=== PATIENT | male | born 1985 | race Caucasian/White ===

== ENCOUNTER 2022-11-06 16:47 | Emergency (ER) | payer BC, OTHER ==
[~2022-11-06] VITALS: Ht 188 cm; Wt 123.0 kg
[2022-11-06] MEDS ORDERED: IBUPROFEN 400MG TABLET PO ONE (19:45)
[2022-11-06 19:59] VITALS: BP 178/104
[2022-11-06] MEDS ORDERED: IBUP-2028 MT (22:05)
[2022-11-06] MEDS ORDERED: CLIN-194 MT (22:05)
== END 2022-11-06 22:33 | disposition home or self-care (01) ==
LOC: ER 17:04
DX: S52.122A Displaced fracture of head of left radius, initial encounter for closed fracture (principal); X58.XXXA Exposure to other specified factors, initial encounter; Y93.89 Activity, other specified; Y92.89 Other specified places as the place of occurrence of the external cause; Y99.8 Other external cause status
CPT/HCPCS: 73080; 76881; 93971; 99284; A4565